=== PATIENT | male | born 1965 | race American Indian/Alaskan Native ===

== ENCOUNTER 2021-06-13 07:33 | Emergency (ER) | payer SELFPAY ==
[2021-06-13] MEDS ORDERED: IBUPROFEN 800 MG TAB PO ONE (09:01)
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
[2021-06-13 10:51] VITALS: BP 194/100
== END 2021-06-13 10:51 | disposition home or self-care (01) ==
LOC: ED 07:33
DX: S63.601A Unspecified sprain of right thumb, initial encounter (principal); S39.012A Strain of muscle, fascia and tendon of lower back, initial encounter; V49.59XA Passenger injured in collision with other motor vehicles in traffic accident, initial encounter; Y93.89 Activity, other specified; Y92.89 Other specified places as the place of occurrence of the external cause; Y99.8 Other external cause status
CPT/HCPCS: 99283